=== PATIENT | female | born 1965 | race Caucasian/White ===

== ENCOUNTER 2017-10-15 07:35 | Day surgery (SDC) | payer OTHER ==
[2017-10-15] MEDS ORDERED: NEOMYC/POLYMYX/BACIT 30 GM OINT (09:50)
[2017-10-15] MEDS ORDERED: FENTAnyl 50 MCG/ML VIAL (09:55)
[2017-10-15] MEDS ORDERED: PROPOFOL 20 ML (09:55)
[2017-10-15] MEDS ORDERED: MIDAZOLAM 1 MG/ML 2 ML INJ (09:55)
[2017-10-15] MEDS ORDERED: LIDOCAINE 1% (MDV) 20 ML INJ (09:55)
[2017-10-15] MEDS ORDERED: DEXAMETHASONE 4 MG/ML 1 ML INJ ×2 (10:00→10:42)
[2017-10-15] MEDS ORDERED: ROPIVACAINE 0.5 % 30 ML VIAL (10:00)
[2017-10-15] MEDS ORDERED: ONDANSETRON 4 MG INJ (10:42)
[2017-10-15] MEDS ORDERED: LABETALOL HCL 20MG INJ (10:42)
[2017-10-15] MEDS ORDERED: KETOROLAC 30 MG INJ (10:43)
[2017-10-15] MEDS: BUPIVACAINE 0.5% (SDV) 30 ML INJ (11:07)
[2017-10-15] MEDS: POVIDONE IODINE 10% 28.4 GM OINT (11:08)
== END 2017-10-15 13:20 | disposition home or self-care (01) ==
LOC: SDS 07:35
DX: M20.11 Hallux valgus (acquired), right foot (principal)
CPT/HCPCS: 28296; 88304; 88311

== ENCOUNTER 2018-02-04 07:46 | Day surgery (SDC) | payer OTHER ==
[~2018-02-04 07:46] MED LIST: CEFAZOLIN 1 GM INJ; DEXAMETHASONE 4 MG/ML 1 ML INJ; FENTAnyl 50 MCG/ML VIAL; GLYCOPYRROLATE 0.4 MG INJ; LIDOCAINE 2% (SDV) 5 ML INJ; MIDAZOLAM 1 MG/ML 2 ML INJ; NEOSTIGMINE 3 MG/3 ML SYRINGE; PROPOFOL 20 ML; ROCURONIUM 50 MG INJ; hydrALAzine 20 MG INJ
[2018-02-04] MEDS ORDERED: ONDANSETRON 4 MG INJ (07:47)
[2018-02-04] MEDS ORDERED: NALOXONE (0.4 MG/ML) INJ IV (08:00)
[2018-02-04] MEDS ORDERED: POVIDONE IODINE 10% 28.4 GM OINT (08:58)
[2018-02-04] MEDS ORDERED: PROPOFOL 20 ML (10:40)
[2018-02-04] MEDS ORDERED: LIDOCAINE 2% (SDV) 5 ML INJ (10:40)
[2018-02-04] MEDS ORDERED: ROCURONIUM 50 MG INJ (10:40)
[2018-02-04] MEDS: BUPIVACAINE 0.5% (SDV) 30 ML INJ (11:38)
[2018-02-04] MEDS ORDERED: HYDROmorphONE 1 MG/5 ML IV SYRINGE IV ×3 (12:22→12:30)
[2018-02-04] MEDS ORDERED: METOCLOPRAMIDE 10 MG INJ IV (12:30)
[2018-02-04] MEDS ORDERED: FENTAnyl 50 MCG/ML VIAL IV ×2 (12:30)
[2018-02-04] MEDS ORDERED: DIPHENHYDRAMINE 50 MG INJ IV (12:30)
[2018-02-04] MEDS: HYDROmorphONE 1 MG/5 ML IV SYRINGE IV (12:31)
[2018-02-04] MEDS: MEPERIDINE 25 MG INJ IV (12:39)
[2018-02-04] MEDS: ONDANSETRON 4 MG INJ IV ×2 (12:39→13:10)
[2018-02-04] MEDS: OXYCODONE/ACETAMINOPHEN (5/325) TAB PO (13:10)
== END 2018-02-04 14:12 | disposition home or self-care (01) ==
LOC: SDS 07:46
DX: M20.12 Hallux valgus (acquired), left foot (principal); M21.612 Bunion of left foot; I10 Essential (primary) hypertension
CPT/HCPCS: 28299; 84703; 88304; 88311

== ENCOUNTER 2019-01-17 08:19 | Day surgery (SDC) | payer OTHER ==
[2019-01-17] MEDS ORDERED: FENTAnyl 50 MCG/ML VIAL (10:24)
[2019-01-17] MEDS ORDERED: MIDAZOLAM 1 MG/ML 2 ML INJ (10:24)
== END 2019-01-17 12:46 | disposition home or self-care (01) ==
LOC: GIL 08:19
DX: Z12.11 Encounter for screening for malignant neoplasm of colon (principal); K64.8 Other hemorrhoids; I10 Essential (primary) hypertension
CPT/HCPCS: 45378